=== PATIENT | male | born 1960 | race Two or more races ===

== ENCOUNTER 2021-02-25 16:13 | Inpatient (IN) | payer MEDICAID ==
[~2021-02-25] VITALS: Ht 160 cm; Wt 79.1 kg
[2021-02-25] MEDS ORDERED: GABA-1181 PO (18:00)
[2021-02-25] MEDS ORDERED: FLUO20CA36 PO (18:00)
[2021-02-25 18:15] LABS: GLUCOMETER DEV NAME(LOC) ERT.5; GLUCOSE,POINT OF CARE 229 MG/DL (70-110)
[2021-02-25 18:44] LABS: BASOPHILS % (AUTO) 0.3 % (0.0-2.0); EOSINOPHILS % (AUTO) 0.7 % (1.0-6.0); HEMATOCRIT 44.5 % (41-53); HEMOGLOBIN 14.8 g/dL (13.5-17.5); LYMPHOCYTES # (AUTO) 2.4 K/uL (1.0-4.8); LYMPHOCYTES % (AUTO) 37.1 % (22.0-44.0); MEAN CORPUSCULAR HEMOGLOBIN 30.4 pg (26.0-34.0); MEAN CORPUSCULAR HGB CONC 33.3 G/dL (31.0-37.0); MEAN CORPUSCULAR VOLUME 91 fL (80-100); MONOCYTES # (AUTO) 0.5 K/uL (0.1-1.0); MONOCYTES % (AUTO) 7.6 % (2.0-9.0); NEUTROPHILS # (AUTO) 3.5 K/uL (1.8-7.7); NEUTROPHILS % (AUTO) 54.3 % (40.0-70.0); PLATELET COUNT (AUTO) 190 K/uL (150-450); RED BLOOD CELL COUNT(AUTO) 4.87 MIL/uL (4.50-5.90)
[2021-02-25 19:02] LABS: PROTHROMBIN TIME 11.1 SEC (9.4-11.6)
[2021-02-25 19:03] LABS: ANION GAP 17 mmol/L (8-16); CALCIUM, TOTAL 8.4 mg/dL (8.8-10.5); CARBON DIOXIDE 22 mmol/L (22-29); CHLORIDE 99 mmol/L (98-107); CREATININE 0.68 mg/dL (0.60-1.30); GLOMERULAR FILTR. RATE CALC > 60 mL/min (>60); GLUCOSE,RANDOM 253 mg/dL (70-110); SODIUM SERUM 138 mmol/L (136-145); UREA NITROGEN, BLOOD 10 mg/dL (7-18)
[2021-02-25 19:08] LABS: ALANINE AMINOTRANSFERASE 64 U/L (12-78); ALBUMIN 3.1 g/dL (3.4-5.0); ALKALINE PHOSPHATASE 85 U/L (46-116); ASPARTATE AMINOTRANSFERASE 85 U/L (15-37); BILIRUBIN,TOTAL 0.7 mg/dL (0.1-1.0); LIPASE 114 U/L (73-393); TOTAL PROTEIN, SERUM 7.8 g/dL (6.4-8.2)
[2021-02-25] MEDS ORDERED: POTASSIUM CHLORIDE 10% 40 MEQ/30 ML LIQUID UDCUP PO ONE (19:15)
[2021-02-25] MEDS ORDERED: OLANZapine 5 MG RAPDIS TABLET PO PRN (19:30)
[2021-02-25] MEDS ORDERED: ZOLPIDEM TARTRATE 10 MG TABLET PO PRN (19:30)
[2021-02-25] MEDS ORDERED: LORazepam 2 MG TABLET PO PRN (19:30)
[2021-02-25 19:51] LABS: COVID AG,FIA SOURCE NASOPHARYNGEAL
[2021-02-25] MEDS ORDERED: SODIUM CHLORIDE 0.9% 1,000 ML IV ONE (22:45)
[2021-02-25] MEDS ORDERED: ONDANSETRON HCL 4 MG/2 ML VIAL IVP ONE (22:45)
[2021-02-26] VITALS (10 sets, daily range): BP systolic 119–167; BP diastolic 69–96
[2021-02-26 02:57] LABS: GLUCOMETER DEV NAME(LOC) ERT.5; GLUCOSE,POINT OF CARE 148 MG/DL (70-110)
[2021-02-26 05:08] LABS: CHOL/HDL RATIO 3.3 (4.2-7.3)
[2021-02-26] MEDS ORDERED: LORazepam 2 MG TABLET PO PRN (07:00)
[2021-02-26] MEDS ORDERED: HydrOXYzine PAMOATE 50 MG CAPSULE PO PRN ×2 (08:30)
[2021-02-26] MEDS ORDERED: PROMETHAZINE HCL 25 MG TABLET PO PRN (08:30)
[2021-02-26] MEDS ORDERED: GuaiFENesin/D-METHORPHAN [SUGAR-FREE] 200-20MG/10 ML SYRUP UDCUP PO PRN ×2 (08:30)
[2021-02-26] MEDS ORDERED: MAG HYDROX/AL HYDROX/SIMETH ES 30 ML SUSPENSION UDCUP PO PRN (08:30)
[2021-02-26] MEDS ORDERED: ACETAMINOPHEN 325 MG TABLET PO PRN (08:30)
[2021-02-26] MEDS ORDERED: MAGNESIUM HYDROXIDE SUSPENSION 30 ML UDCUP PO PRN (08:30)
[2021-02-26] MEDS ORDERED: TUBERCULIN, PURIFIED PROTEIN DERIVATIVE 5 TU/0.1 ML SYRINGE ID ONE (08:30)
[2021-02-26] MEDS ORDERED: LOPERAMIDE HCL 2 MG CAPSULE PO PRN ×3 (08:30)
[2021-02-26] MEDS ORDERED: CYANOCOBALAMIN 1,000 MCG/ML VIAL IM ONE ×2 (08:30)
[2021-02-26] MEDS: FOLIC ACID 1 MG TABLET PO SCH ×2 (09:00)
[2021-02-26] MEDS: OMEGA-3/DHA/EPA/FISH OIL 1,000 MG CAPSULE PO SCH (09:00)
[2021-02-26] MEDS ORDERED: MULTIVITAMINS WITH MINERALS, THERAPEUTIC TABLET PO SCH ×2 (09:00)
[2021-02-26] MEDS ORDERED: LORazepam 2 MG TABLET PO SCH (09:00)
[2021-02-26] MEDS ORDERED: FOLIC ACID 1 MG TABLET PO SCH (09:00)
[2021-02-26] MEDS ORDERED: THIAMINE 100 MG TABLET PO SCH ×2 (09:00)
[2021-02-26] MEDS: DIAZEPAM 10 MG TABLET PO PRN ×4 (09:05→15:11)
[2021-02-26] MEDS: GABAPENTIN 300 MG CAPSULE PO SCH ×4 (09:38→20:35)
[2021-02-26] MEDS: FLUoxetine HCL 20 MG CAPSULE PO SCH (09:38)
[2021-02-26] MEDS: MULTIVITAMINS, THERAPEUTIC TABLET PO SCH (09:39)
[2021-02-26] MEDS: NALTREXONE HCL 50 MG TABLET PO SCH (09:39)
[2021-02-26] MEDS: THIAMINE 100 MG TABLET PO SCH ×2 (10:51→16:33)
[2021-02-26] MEDS ORDERED: GLUCAGON,HUMAN RECOMBINANT 1 MG VIAL IM PRN (11:30)
[2021-02-26] MEDS ORDERED: CloNIDine HCL 0.1 MG TABLET PO PRN (11:30)
[2021-02-26 13:46] LABS: GLUCOMETER DEV NAME(LOC) BV2S.; GLUCOSE,POINT OF CARE 189 MG/DL (70-110)
[2021-02-26] MEDS: INSULIN LISPRO 100 UNITS/ML SQ PRN (16:56)
[2021-02-26 17:18] LABS: GLUCOMETER DEV NAME(LOC) BV2S.; GLUCOSE,POINT OF CARE 208 MG/DL (70-110)
[2021-02-26] MEDS: OLANZapine 5 MG RAPDIS TABLET PO SCH (20:35)
[2021-02-26] MEDS: MELATONIN 5 MG TABLET PO SCH (20:35)
[2021-02-26 21:29] LABS: GLUCOMETER DEV NAME(LOC) BV2S.; GLUCOSE,POINT OF CARE 242 MG/DL (70-110)
[2021-02-27] VITALS (8 sets, daily range): BP systolic 113–137; BP diastolic 67–85
[2021-02-27] MEDS: INSULIN LISPRO 100 UNITS/ML SQ PRN ×3 (06:34→19:50)
[2021-02-27 06:51] LABS: GLUCOMETER DEV NAME(LOC) BV2S.; GLUCOSE,POINT OF CARE 193 MG/DL (70-110)
[2021-02-27] MEDS ORDERED: DIAZEPAM 10 MG TABLET PO PRN (07:00)
[2021-02-27 08:39] LABS: HEMOGLOBIN A1C 8.3 % (3.8-5.6)
[2021-02-27] MEDS: FOLIC ACID 1 MG TABLET PO SCH ×2 (09:00→09:26)
[2021-02-27 09:13] LABS: CHOL/HDL RATIO 3.1 (4.2-7.3); FREE T4 (FREE THYROXINE) 1.14 ng/dL (0.76-1.46); THYROID STIMULATING HORMONE 2.22 uIU/mL (0.36-3.74)
[2021-02-27] MEDS: OMEGA-3/DHA/EPA/FISH OIL 1,000 MG CAPSULE PO SCH (09:26)
[2021-02-27] MEDS: GABAPENTIN 300 MG CAPSULE PO SCH ×2 (09:26→12:39)
[2021-02-27] MEDS: DIAZEPAM 10 MG TABLET PO SCH ×4 (09:27→20:27)
[2021-02-27] MEDS: MULTIVITAMINS, THERAPEUTIC TABLET PO SCH (09:27)
[2021-02-27] MEDS: FLUoxetine HCL 20 MG CAPSULE PO SCH (09:27)
[2021-02-27] MEDS: THIAMINE 100 MG TABLET PO SCH ×2 (09:28→16:15)
[2021-02-27] MEDS: NALTREXONE HCL 50 MG TABLET PO SCH (10:31)
[2021-02-27 12:00] LABS: GLUCOMETER DEV NAME(LOC) BV2S.; GLUCOSE,POINT OF CARE 300 MG/DL (70-110)
[2021-02-27] MEDS: GABAPENTIN 400 MG CAPSULE PO SCH ×2 (16:15→20:27)
[2021-02-27 20:00] LABS: GLUCOMETER DEV NAME(LOC) BV2S.; GLUCOSE,POINT OF CARE 300 MG/DL (70-110)
[2021-02-27] MEDS: MELATONIN 5 MG TABLET PO SCH (20:27)
[2021-02-27] MEDS: OLANZapine 5 MG RAPDIS TABLET PO SCH (20:27)
[2021-02-28] VITALS: BP_SYST 128; BP_SYST 135; BP_DIAS 83; BP_DIAS 85
[2021-02-28 00:05] VITALS: BP 128/83
[2021-02-28 00:30] VITALS: BP 134/89
[2021-02-28 01:48] LABS: GLUCOMETER DEV NAME(LOC) ERT.5; GLUCOSE,POINT OF CARE 291 MG/DL (70-110)
[2021-02-28] MEDS ORDERED: LORazepam 1 MG TABLET PO PRN (07:00)
[2021-02-28] MEDS: FLUoxetine HCL 20 MG CAPSULE PO SCH (09:00)
[2021-02-28] MEDS: THIAMINE 100 MG TABLET PO SCH (09:00)
[2021-02-28] MEDS: MULTIVITAMINS, THERAPEUTIC TABLET PO SCH (09:00)
[2021-02-28] MEDS: DIAZEPAM 10 MG TABLET PO SCH ×2 (09:00→13:00)
[2021-02-28] MEDS: NALTREXONE HCL 50 MG TABLET PO SCH (09:00)
[2021-02-28] MEDS: OMEGA-3/DHA/EPA/FISH OIL 1,000 MG CAPSULE PO SCH (09:00)
[2021-02-28] MEDS ORDERED: LORazepam 1 MG TABLET PO SCH (09:00)
[2021-02-28] MEDS: FOLIC ACID 1 MG TABLET PO SCH ×2 (09:00)
[2021-02-28] MEDS: GABAPENTIN 400 MG CAPSULE PO SCH ×2 (09:00→13:00)
[2021-02-28] MEDS ORDERED: GABA-1201 PO (15:31)
[2021-02-28] MEDS ORDERED: NALT50TA PO (15:31)
[2021-02-28] MEDS ORDERED: DIAZ5TAB4 PO (15:31)
[2021-02-28] MEDS ORDERED: OLAN5TAB94 PO (15:31)
[2021-02-28] MEDS ORDERED: OMEG-135 PO (15:31)
[2021-02-28] MEDS ORDERED: MELA5TAB3 PO (15:31)
[2021-02-28] MEDS ORDERED: FLUO20CA36 PO (15:31)
[2021-03-01] MEDS ORDERED: LORazepam 1 MG TABLET PO PRN (07:00)
[2021-03-01] MEDS ORDERED: DIAZEPAM 5 MG TABLET PO PRN (07:00)
[2021-03-01] MEDS ORDERED: DIAZEPAM 5 MG TABLET PO SCH (09:00)
[2021-03-02] MEDS ORDERED: DIAZEPAM 5 MG TABLET PO PRN (07:00)
== END 2021-02-28 21:30 | disposition short-term general hospital (02) | DRG 750 ==
LOC: EMS 16:15 → B2S 02-26 02:00
PROVIDERS: ADMIT Psychiatry & Neurology Psychiatry; ATTEND Psychiatry & Neurology Psychiatry
DX: F25.9 Schizoaffective disorder, unspecified (principal); R45.851 Suicidal ideations; E11.9 Type 2 diabetes mellitus without complications; K70.30 Alcoholic cirrhosis of liver without ascites; I10 Essential (primary) hypertension; F41.0 Panic disorder [episodic paroxysmal anxiety]; Y90.9 Presence of alcohol in blood, level not specified; E87.6 Hypokalemia; F10.129 Alcohol abuse with intoxication, unspecified; K29.20 Alcoholic gastritis without bleeding; Z20.822 Contact with and (suspected) exposure to COVID-19; Z91.14 Patient's other noncompliance with medication regimen; Z88.0 Allergy status to penicillin; Z88.2 Allergy status to sulfonamides
CPT/HCPCS: 71045; 80053; 80061; 82271; 82962; 83036; 83690; 83735; 84132; 84439; 84443; 84484; 85025; 85610; 85730; 86592; 93005; 99291; A9575; G0480; J2405; J3420; 36415-L1; 36415-TC

== ENCOUNTER 2021-03-01 11:58 | Inpatient (IN) | payer MEDICAID ==
[~2021-03-01] VITALS: Ht 160 cm; Wt 78.9 kg
[~2021-03-01 11:58] MED LIST: DIAZ5TAB4 PO; FLUO20CA36 PO; GABA-1181 PO; GABA-1201 PO; MELA5TAB3 PO; NALT50TA PO; OLAN5TAB94 PO; OMEG-135 PO
[2021-03-01] MEDS ORDERED: OLANZapine 5 MG RAPDIS TABLET PO PRN (14:15)
[2021-03-01] MEDS ORDERED: LOPERAMIDE HCL 2 MG CAPSULE PO PRN (14:15)
[2021-03-01] MEDS ORDERED: ACETAMINOPHEN 325 MG TABLET PO PRN (14:15)
[2021-03-01] MEDS ORDERED: GuaiFENesin/D-METHORPHAN [SUGAR-FREE] 200-20MG/10 ML SYRUP UDCUP PO PRN (14:15)
[2021-03-01] MEDS ORDERED: LORazepam 2 MG TABLET PO PRN (14:15)
[2021-03-01] MEDS ORDERED: HydrOXYzine PAMOATE 50 MG CAPSULE PO PRN (14:15)
[2021-03-01] MEDS ORDERED: MAG HYDROX/AL HYDROX/SIMETH ES 30 ML SUSPENSION UDCUP PO PRN (14:15)
[2021-03-01] MEDS ORDERED: ZOLPIDEM TARTRATE 10 MG TABLET PO PRN (14:15)
[2021-03-01] MEDS ORDERED: PROMETHAZINE HCL 25 MG TABLET PO PRN (14:15)
[2021-03-01] MEDS ORDERED: MAGNESIUM HYDROXIDE SUSPENSION 30 ML UDCUP PO PRN (14:15)
[2021-03-01 20:17] VITALS: BP 150/96
[2021-03-01] MEDS ORDERED: GLUCAGON,HUMAN RECOMBINANT 1 MG VIAL IM PRN (20:30)
[2021-03-01] MEDS: MELATONIN 5 MG TABLET PO SCH (20:41)
[2021-03-01] MEDS: GABAPENTIN 100 MG CAPSULE PO SCH (20:41)
[2021-03-01] MEDS: OLANZapine 10 MG RAPDIS TABLET PO SCH (20:41)
[2021-03-01] MEDS: INSULIN LISPRO 100 UNITS/ML SQ PRN (20:59)
[2021-03-02 06:14] VITALS: BP 124/85
[2021-03-02] MEDS: INSULIN LISPRO 100 UNITS/ML SQ PRN ×4 (06:39→20:32)
[2021-03-02 06:49] LABS: GLUCOMETER DEV NAME(LOC) BV2S.; GLUCOSE,POINT OF CARE 178 MG/DL (70-110)
[2021-03-02 08:03] VITALS: BP 118/73
[2021-03-02] MEDS: GABAPENTIN 100 MG CAPSULE PO SCH ×3 (08:28→16:18)
[2021-03-02] MEDS: MULTIVITAMINS WITH MINERALS, THERAPEUTIC TABLET PO SCH (08:28)
[2021-03-02] MEDS: AmLODIPine BESYLATE 2.5 MG TABLET PO SCH (08:28)
[2021-03-02] MEDS: OMEGA-3/DHA/EPA/FISH OIL 1,000 MG CAPSULE PO SCH (08:28)
[2021-03-02] MEDS: FLUoxetine HCL 20 MG CAPSULE PO SCH (08:28)
[2021-03-02] MEDS: FOLIC ACID 1 MG TABLET PO SCH (08:28)
[2021-03-02] MEDS: THIAMINE 100 MG TABLET PO SCH ×2 (08:28→16:18)
[2021-03-02] MEDS: NALTREXONE HCL 50 MG TABLET PO SCH (08:29)
[2021-03-02 11:51] LABS: GLUCOMETER DEV NAME(LOC) BV2S.; GLUCOSE,POINT OF CARE 385 MG/DL (70-110)
[2021-03-02 16:00] VITALS: BP 134/95
[2021-03-02 16:35] LABS: GLUCOMETER DEV NAME(LOC) BV2S.; GLUCOSE,POINT OF CARE 299 MG/DL (70-110)
[2021-03-02] MEDS: MELATONIN 5 MG TABLET PO SCH (20:22)
[2021-03-02] MEDS: OLANZapine 10 MG RAPDIS TABLET PO SCH (20:22)
[2021-03-02 20:40] LABS: GLUCOMETER DEV NAME(LOC) BV2S.; GLUCOSE,POINT OF CARE 291 MG/DL (70-110)
[2021-03-03 00:08] VITALS: BP 128/82
[2021-03-03 06:22] LABS: GLUCOMETER DEV NAME(LOC) BV2S.; GLUCOSE,POINT OF CARE 241 MG/DL (70-110)
[2021-03-03] MEDS: INSULIN LISPRO 100 UNITS/ML SQ PRN ×4 (06:31→20:03)
[2021-03-03] MEDS: OMEGA-3/DHA/EPA/FISH OIL 1,000 MG CAPSULE PO SCH (07:58)
[2021-03-03] MEDS: NALTREXONE HCL 50 MG TABLET PO SCH (07:58)
[2021-03-03] MEDS: MULTIVITAMINS WITH MINERALS, THERAPEUTIC TABLET PO SCH (07:59)
[2021-03-03] MEDS: FOLIC ACID 1 MG TABLET PO SCH (07:59)
[2021-03-03] MEDS: AmLODIPine BESYLATE 2.5 MG TABLET PO SCH (07:59)
[2021-03-03] MEDS: GABAPENTIN 100 MG CAPSULE PO SCH ×3 (07:59→16:05)
[2021-03-03] MEDS: THIAMINE 100 MG TABLET PO SCH ×2 (07:59→16:05)
[2021-03-03] MEDS: FLUoxetine HCL 20 MG CAPSULE PO SCH (07:59)
[2021-03-03 08:01] VITALS: BP 128/70
[2021-03-03 11:28] LABS: GLUCOMETER DEV NAME(LOC) BV2S.; GLUCOSE,POINT OF CARE 281 MG/DL (70-110)
[2021-03-03 16:03] VITALS: BP 143/81
[2021-03-03 16:17] LABS: GLUCOMETER DEV NAME(LOC) BV2S.; GLUCOSE,POINT OF CARE 277 MG/DL (70-110)
[2021-03-03 20:00] LABS: GLUCOMETER DEV NAME(LOC) BV2S.; GLUCOSE,POINT OF CARE 296 MG/DL (70-110)
[2021-03-03] MEDS: OLANZapine 10 MG RAPDIS TABLET PO SCH (20:00)
[2021-03-03] MEDS: MELATONIN 5 MG TABLET PO SCH (20:00)
[2021-03-04 00:08] VITALS: BP 136/81
[2021-03-04 06:19] LABS: GLUCOMETER DEV NAME(LOC) BV2S.; GLUCOSE,POINT OF CARE 254 MG/DL (70-110)
[2021-03-04] MEDS: INSULIN LISPRO 100 UNITS/ML SQ PRN ×2 (06:46→11:21)
[2021-03-04 08:18] VITALS: BP 142/87
[2021-03-04] MEDS: AmLODIPine BESYLATE 2.5 MG TABLET PO SCH (08:43)
[2021-03-04] MEDS: FOLIC ACID 1 MG TABLET PO SCH (08:43)
[2021-03-04] MEDS: MULTIVITAMINS WITH MINERALS, THERAPEUTIC TABLET PO SCH (08:43)
[2021-03-04] MEDS: NALTREXONE HCL 50 MG TABLET PO SCH (08:43)
[2021-03-04] MEDS: THIAMINE 100 MG TABLET PO SCH ×2 (08:43→16:07)
[2021-03-04] MEDS: FLUoxetine HCL 20 MG CAPSULE PO SCH (08:43)
[2021-03-04] MEDS: OMEGA-3/DHA/EPA/FISH OIL 1,000 MG CAPSULE PO SCH (08:43)
[2021-03-04] MEDS: GABAPENTIN 100 MG CAPSULE PO SCH ×3 (08:43→16:38)
[2021-03-04 11:29] LABS: GLUCOMETER DEV NAME(LOC) BV2S.; GLUCOSE,POINT OF CARE 340 MG/DL (70-110)
[2021-03-04] MEDS ORDERED: FLUO20CA36 PO (14:37)
[2021-03-04] MEDS ORDERED: MELA5TAB3 PO (14:37)
[2021-03-04] MEDS ORDERED: OMEG-135 PO (14:37)
[2021-03-04] MEDS ORDERED: NALT50TA PO (14:37)
[2021-03-04] MEDS ORDERED: GABA-1216 PO (14:37)
[2021-03-04] MEDS ORDERED: OLAN10TA26 PO (14:37)
[2021-03-04 16:09] VITALS: BP 138/85
[2021-03-04] MEDS ORDERED: INSULIN LISPRO 100 UNITS/ML SQ PRN (16:30)
[2021-03-04] MEDS ORDERED: GLUCAGON,HUMAN RECOMBINANT 1 MG VIAL IM PRN (16:30)
[2021-03-04 16:31] LABS: GLUCOMETER DEV NAME(LOC) BV2S.; GLUCOSE,POINT OF CARE 415 MG/DL (70-110)
[2021-03-04] MEDS ORDERED: METF-960 PO (16:59)
[2021-03-04] MEDS ORDERED: MetFORMIN HCL 500 MG TABLET PO SCH (17:00)
[2021-03-04] MEDS ORDERED: INSULIN LISPRO 100 UNITS/ML SQ ONE (17:00)
[2021-03-04 18:19] LABS: GLUCOMETER DEV NAME(LOC) BV2S.; GLUCOSE,POINT OF CARE 342 MG/DL (70-110)
== END 2021-03-04 19:42 | disposition home or self-care (01) | DRG 750 ==
LOC: B2S 19:27
PROVIDERS: ADMIT Psychiatry & Neurology Psychiatry; ATTEND Psychiatry & Neurology Psychiatry
DX: F25.1 Schizoaffective disorder, depressive type (principal); F41.9 Anxiety disorder, unspecified; Z20.822 Contact with and (suspected) exposure to COVID-19; Z55.9 Problems related to education and literacy, unspecified; Z59.9 Problem related to housing and economic circumstances, unspecified; Z65.3 Problems related to other legal circumstances
CPT/HCPCS: 82962; A9575; J1815